=== PATIENT | female | born 2000 | race Caucasian/White ===

== ENCOUNTER 2020-09-01 16:06 | Emergency (ER) | payer OTHER ==
[~2020-09-01 16:06] MED LIST: BACLOFEN 10MG T10 MG PO; NAPROSYN375 MG PO; NAPROXEN500 MG PO
== END 2020-09-01 17:02 | disposition home or self-care (01) ==
LOC: FER 16:06
DX: Z00.00 Encounter for general adult medical examination without abnormal findings (principal)
CPT/HCPCS: 99284